=== PATIENT | male | born 1990 | race Caucasian/White ===

== ENCOUNTER 2018-09-02 01:36 | Emergency (ER) | payer SELFPAY ==
[2018-09-02 01:50] VITALS: BP 139/86
[2018-09-02] MEDS ORDERED: TORADOL IM ONE (02:27)
--- NOTE | 2018-09-02 03:14 | Emergency Department Report ---
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 There is no numbness or tingling no loss or decrease in bowel or bladder function. ED Past Medical Hx - Past Medical History Previous Medical History?: No - Surgical History Past Surgical History?: No - Social History Smoking Status: Never Smoker Substance Use Type: None ED Review of Systems ROS: Stated complaint: SLIP AND FALL AT WORK ON 08 30 18 Other details as noted in HPI Physical Exam - Physical Exam Vital Signs: Vital Signs 09/02/18 09/02/18 01:42 01:43 Temperature 98.9 F 98.9 F Pulse Rate 81 76 Respiratory 18 18 Rate Blood Pressure 139/86 139/86 O2 Sat by Pulse 98 100 Oximetry ED Course Vital Signs 09/02/18 09/02/18 01:42 01:43 Temperature 98.9 F 98.9 F Pulse Rate 81 76 Respiratory 18 18 Rate Blood Pressure 139/86 139/86 O2 Sat by Pulse 98 100 Oximetry Critical care attestation.: If time is entered above; I have spent that time in minutes in the direct care of this critically ill patient, excluding procedure time. ED Disposition Condition: Stable Referrals: PRIMARY CARE, [Primary Care Provider] - 3-5 Days
--- NOTE | 2018-09-02 03:16 | Emergency Department Report ---
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 symptoms are relieved by rest, symptoms are exacerbated b movement and palpation MD Complaint: back pain Onset/Timin -: days(s) Similar Symptoms Previously: No Place: home, work Radiation: right leg Severity: moderate Severity scale (0 -10): 5 Quality: sharp, aching Consistency: intermittent Improves With: none Worsens With: immobilization Context: while lifting, bending Associated Symptoms: denies other symptoms. denies: numbness, difficulty urinating, incontinence, fever/chills - Related Data Previous Rx's Medication Instructions Recorded Last Taken Type Cyclobenzaprine [Flexeril] 10 mg PO BID PRN #20 tablet 09/02/18 Unknown Rx Menthol/Camphor [[place] 1 applicatio TP QID PRN #1 tube 09/02/18 Unknown Rx Ointment] Naproxen 500 mg PO PRN #30 tablet 09/02/18 Unknown Rx Allergies Allergy/AdvReac Type Severity Reaction Status Date / Time No Known Allergies Allergy Verified 09/02/18 01:50 ED Review of Systems ROS: Stated complaint: SLIP AND FALL AT WORK ON 08 30 18 Other details as noted in HPI Constitutional: denies: chills, fever Eyes: eye pain, eye discharge. denies: vision change ENT: denies: ear pain, throat pain, dental pain, epistaxis, congestion Respiratory: other. denies: cough, shortness of breath, wheezing Cardiovascular: edema. denies: chest pain, palpitations Endocrine: no symptoms reported Gastrointestinal: vomiting, constipation, hematemesis, melena. denies: abdominal pain, nausea, diarrhea Genitourinary: denies: urgency, dysuria Musculoskeletal: myalgia. denies: back pain, joint swelling, arthralgia Skin: denies: rash, lesions Neurological: denies: headache, weakness, paresthesias Psychiatric: denies: anxiety, depression Hematological/Lymphatic: denies: easy bleeding, easy bruising ED Past Medical Hx - Past Medical History Previous Medical History?: No - Surgical History Past Surgical History?: No - Social History Smoking Status: Never Smoker Substance Use Type: None - Medications Home Medications: Home Medications Medication Instructions Recorded Confirmed Last Taken Type Cyclobenzaprine [Flexeril] 10 mg PO BID PRN #20 tablet 09/02/18 Unknown Rx Menthol/Camphor [[place] 1 applicatio TP QID PRN #1 tube 09/02/18 Unknown Rx Ointment] Naproxen 500 mg PO PRN #30 tablet 09/02/18 Unknown Rx ED Physical Exam - General Limitations: No Limitations General appearance: alert, in no apparent distress - Head Head exam: Present: atraumatic, normocephalic, normal inspection - Eye Eye exam: Present: normal appearance, EOMI. Absent: conjunctival injection Pupils: Present: normal accommodation - ENT ENT exam: Present: normal orophraynx, mucous membranes dry, mucous membranes moist, TM's normal bilaterally - Neck Neck exam: Present: normal inspection, full ROM. Absent: tenderness, meningismus, lymphadenopathy, thyromegaly - Respiratory Respiratory exam: Present: normal lung sounds bilaterally. Absent: respiratory distress, wheezes, stridor, chest wall tenderness - Cardiovascular Cardiovascular Exam: Present: regular rate, normal rhythm, normal heart sounds. Absent: systolic murmur, diastolic murmur, rubs, gallop - GI/Abdominal GI/Abdominal exam: Present: soft, normal bowel sounds - Rectal Rectal exam: Present: deferred - Extremities Exam Extremities exam: Present: normal inspection, full ROM, normal capillary refill, pedal edema - Back Exam Back exam: Present: normal inspection, full ROM, tenderness, muscle spasm, paraspinal tenderness, vertebral tenderness. Absent: CVA tenderness (L) - Neurological Exam Neurological exam: Present: alert, oriented X3, CN II-XII intact, normal gait. Absent: reflexes normal - Psychiatric Psychiatric exam: Present: normal affect, normal mood - Skin Skin exam: Present: warm, dry, intact, normal color. Absent: rash ED Course Vital Signs 09/02/18 09/02/18 09/02/18 01:42 01:43 04:21 Temperature 98.9 F 98.9 F Pulse Rate 81 76 68 Respiratory 18 18 14 Rate Blood Pressure 139/86 139/86 O2 Sat by Pulse 98 100 99 Oximetry ED Medical Decision Making - Lab Data - Radiology Data Radiology results: report reviewed, image reviewed no fracture no soft tissure abnormal - Medical Decision Making X-rays pelvis and sacrum are normal no fracture no soft tissue abnormalities pain is improved with medicines given in ED plan: NSAIDs muscle relaxants analgesic balm follow up with orthopedic surgery in 23 days patient verbalizes agreement and understanding with saline patient will be DC'd home in stable condition at this time, pain is decreased to 1/10 at this time, pt is tolerating po intake without n/v , pt will follow up 2-3 days, Critical care attestation.: If time is entered above; I have spent that time in minutes in the direct care of this critically ill patient, excluding procedure time. ED Disposition Clinical Impression: available Strain of sacrum Qualifiers: Encounter type: initial encounter Qualified Code(s): S39.012A - Strain of muscle, fascia and tendon of lower back, initial encounter Fall Qualifiers: Encounter type: initial encounter Qualified Code(s): W19.XXXA - Unspecified fall, initial encounter Sacral bruising Qualifiers: Encounter type: initial encounter Qualified Code(s): S30.0XXA - Contusion of lower back and pelvis, initial encounter Disposition: DC-01 TO HOME OR SELFCARE Is pt being admited?: No Does the pt Need Aspirin: No Condition: Good Instructions: Muscle Strain (ED) Prescriptions: Cyclobenzaprine [Flexeril] 10 mg PO BID PRN #20 tablet PRN Reason: Muscle Spasm Menthol/Camphor [[place] Ointment] 1 applicatio TP QID PRN #1 tube PRN Reason: Pain , Severe (7-10) Naproxen 500 mg PO PRN #30 tablet Referrals: PRIMARY CARE, [Primary Care Provider] - 3-5 Days KELLY ZARATE MD [Staff Physician] - 3-5 Days Forms: Work/School Release Form(ED) Time of Disposition: 04:07 Print Language: PORTUGUESE
--- NOTE | 2018-09-02 06:31 | XRay Report ---
FINAL REPORT EXAM: XR PELVIS 1-2V HISTORY: bilat hip pain TECHNIQUE: An AP view of the pelvis was obtained. FINDINGS: The bony pelvic ring appears intact. Both hip and SI joints appear normal. The soft tissues are unrem arkable. IMPRESSION: Within normal limits.
--- NOTE | 2018-09-02 06:32 | XRay Report ---
FINAL REPORT EXAM: XR SPINE LUMBOSACRAL 2-3V HISTORY: lumbosacral pain s/p fall TECHNIQUE: AP and lateral views of the lumbar spine were submitted. FINDINGS: The disc heights and alignment appear normal. There is no evidence of fracture. Soft tissues appear n ormal. IMPRESSION: Within normal limits
== END 2018-09-02 04:20 | disposition home or self-care (01) ==
LOC: ED 01:36
DX: S39.012A Strain of muscle, fascia and tendon of lower back, initial encounter (principal); W01.190A Fall on same level from slipping, tripping and stumbling with subsequent striking against furniture, initial encounter; Y93.89 Activity, other specified; Y92.098 Other place in other non-institutional residence as the place of occurrence of the external cause; Y99.8 Other external cause status
CPT/HCPCS: 72100; 72170; 96372; 99283; J1885